=== PATIENT | female | born 1980 | race American Indian/Alaskan Native ===

== ENCOUNTER 2019-01-10 13:46 | Emergency (ER) | payer SELFPAY ==
--- NOTE | 2019-01-10 14:12 | Event Note ---
ED Screening Note Date of service: 01/10/19 Time: 14:06 ED Screening Note: Patient cold symptoms with chest and congestion , cough UP brown pleghm, runnynose. Positive sob. No CP. No fever, chills/ NV. Bronchitis in the past Lungs:- NL WOB, Cough, occasional rhonchi on rt cleared withing ?Bronchtis/URI/LRTI/sinusitis This initial assessment/diagnostic orders/clinical plan/treatment(s) is/are subject to change based on patients health status, clinical progression and re- assessment by fellow clinical providers in the ED. Further treatment and workup at subsequent clinical providers discretion. Patient/guardian urged not to elope from the ED as their condition may be serious if not clinically assessed and managed. Initial orders include: CXR
[2019-01-10 16:06] LABS: HCG Qualitative,Urine Negative (Negative)
--- NOTE | 2019-01-10 16:26 | Emergency Department Report ---
- General Chief Complaint: Upper Respiratory Infection Stated Complaint: COLD SX/CHEST PAIN Time Seen by Provider: 01/10/19 14:05 Source: patient Mode of arrival: Ambulatory Limitations: No Limitations - History of Present Illness Initial Comments: 38-year-old female presents to ED with cough 3 days. Patient reports chest pain, cough productive of brownish sputum. Reports that she is a smoker, hasn't diagnosed with bronchitis in the past. She reports associated mild shortness of breath, runny nose, body aches, and chills. MD Complaint: cough -: days(s) (3) Severity: moderate Consistency: constant Improves With: nothing Worsens With: nothing Associated Symptoms: chills, myalgias, rhinorrhea, nasal congestion, cough, chest pain, shortness of breath. denies: nausea, vomiting - Related Data Previous Rx's Medication Instructions Recorded Last Taken Type Albuterol Sulfate [Proventil Hfa] 2 puff IH Q4HR PRN #1 hfa.aer.ad 01/10/19 Unknown Rx Azithromycin 500 mg PO QDAY #3 tablet 01/10/19 Unknown Rx Benzonatate [Tessalon Perles] 100 mg PO Q8HR PRN #20 capsule 01/10/19 Unknown Rx Naproxen [Naprosyn] 500 mg PO BID #20 tablet 01/10/19 Unknown Rx predniSONE [Deltasone] 50 mg PO QDAY #5 tab 01/10/19 Unknown Rx Allergies Allergy/AdvReac Type Severity Reaction Status Date / Time No Known Allergies Allergy Unverified 04/04/14 17:05 ED Review of Systems ROS: Stated complaint: COLD SX/CHEST PAIN Other details as noted in HPI Comment: All other systems reviewed and negative Constitutional: chills Respiratory: cough, shortness of breath Cardiovascular: chest pain Gastrointestinal: denies: nausea, vomiting Musculoskeletal: myalgia ED Past Medical Hx - Past Medical History Previous Medical History?: No - Surgical History Past Surgical History?: No - Social History Smoking Status: Never Smoker Substance Use Type: Marijuana - Medications Home Medications: Home Medications Medication Instructions Recorded Confirmed Last Taken Type Albuterol Sulfate [Proventil Hfa] 2 puff IH Q4HR PRN #1 hfa.aer.ad 01/10/19 Unknown Rx Azithromycin 500 mg PO QDAY #3 tablet 01/10/19 Unknown Rx Benzonatate [Tessalon Perles] 100 mg PO Q8HR PRN #20 capsule 01/10/19 Unknown Rx Naproxen [Naprosyn] 500 mg PO BID #20 tablet 01/10/19 Unknown Rx predniSONE [Deltasone] 50 mg PO QDAY #5 tab 01/10/19 Unknown Rx ED Physical Exam - General Limitations: No Limitations General appearance: alert, in no apparent distress - Head Head exam: Present: atraumatic, normocephalic - Eye Eye exam: Present: normal appearance, EOMI - ENT ENT exam: Present: mucous membranes moist - Neck Neck exam: Present: normal inspection - Respiratory Respiratory exam: Present: normal lung sounds bilaterally. Absent: respiratory distress - Cardiovascular Cardiovascular Exam: Present: regular rate, normal rhythm - GI/Abdominal GI/Abdominal exam: Absent: distended - Extremities Exam Extremities exam: Present: normal inspection - Neurological Exam Neurological exam: Present: alert, oriented X3 - Psychiatric Psychiatric exam: Present: normal affect, normal mood - Skin Skin exam: Present: warm, dry, intact, normal color ED Course Vital Signs 01/10/19 01/10/19 14:02 17:44 Temperature 98.8 F 98.9 F Pulse Rate 78 79 Respiratory 20 16 Rate Blood Pressure 165/81 Blood Pressure 139/90 [Right] O2 Sat by Pulse 100 99 Oximetry ED Medical Decision Making - Radiology Data Radiology results: report reviewed, image reviewed - Medical Decision Making 38-year-old female presents to ED with URI symptoms. Patient reported cough productive of brownish sputum. Chest x-ray is unremarkable. Patient is a smoker, reports history of bronchitis in the past. This is likely another episode of bronchitis. Patient is in no respiratory distress. Vital signs are normal. Prescriptions given. Outpatient follow-up advised. Return precautions given. - Differential Diagnosis URI, bronchitis, pneumonia Critical care attestation.: If time is entered above; I have spent that time in minutes in the direct care of this critically ill patient, excluding procedure time. ED Disposition Clinical Impression: Acute bronchitis Disposition: DC- TO HOME OR SELFCARE Is pt being admited?: No Condition: Stable Instructions: Acute Bronchitis (ED) Prescriptions: Azithromycin 500 mg PO QDAY #3 tablet predniSONE [Deltasone] 50 mg PO QDAY #5 tab Naproxen [Naprosyn] 500 mg PO BID #20 tablet Albuterol Sulfate [Proventil Hfa] 2 puff IH Q4HR PRN #1 hfa.aer.ad PRN Reason: Wheezing Benzonatate [Tessalon Perles] 100 mg PO Q8HR PRN #20 capsule PRN Reason: Cough Referrals: PRIMARY CARE, [Primary Care Provider] - 3-5 Days [facility] [Provider Group] - 3-5 Days Forms: Work/School Release Form(ED) Time of Disposition: 17:13
--- NOTE | 2019-01-10 17:13 | XRay Report ---
CHEST 2 VIEWS INDICATION / CLINICAL INFORMATION: cough, sob, brown pleghm. COMPARISON: None available. FINDINGS: SUPPORT DEVICES: None. HEART / MEDIASTINUM: No significant abnormality. LUNGS / PLEURA: No significant pulmonary or pleural abnormality. No pneumothorax. ADDITIONAL FINDINGS: No significant additional findings. IMPRESSION: 1. No acute findings. Signer Name: Florencia Bose MD Signed: 01/10/2019 5:09 PM Workstation Name: [id number]
[2019-01-10] MEDS ORDERED: ACETAMINOPHEN 325 MG TAB ONE (17:16)
[2019-01-10] MEDS ORDERED: ACETAMINOPHEN 325 MG TAB PO ONE (17:16)
[2019-01-10 17:49] VITALS: BP 139/90
== END 2019-01-10 17:49 | disposition home or self-care (01) ==
LOC: ED 13:46
DX: J40 Bronchitis, not specified as acute or chronic (principal); F12.10 Cannabis abuse, uncomplicated
CPT/HCPCS: 71046; 81025

== ENCOUNTER 2019-03-10 23:24 | Emergency (ER) | payer MEDICAID ==
[2019-03-10] MEDS ORDERED: ASPIRIN 325 MG TAB PO ONE (23:35)
[2019-03-10 23:58] LABS: Basophils % (Auto) 0.5 % (0.0-1.8); Eosinophils # (Auto) 0.1 K/mm3 (0.0-0.4); Eosinophils % (Auto) 2.5 % (0.0-4.3); Hemoglobin 12.2 gm/dl (10.1-14.3); Lymphocytes # (Auto) 1.6 K/mm3 (1.2-5.4); Lymphocytes % (Auto) 38.6 % (13.4-35.0); Mean Corpuscular HGB Conc 34 % (30-34); Mean Corpuscular Volume 98 fl (79-97); Monocytes # (Auto) 0.4 K/mm3 (0.0-0.8); Monocytes % (Auto) 9.8 % (0.0-7.3); Platelet Count 176 K/mm3 (140-440); Red Blood Count 3.68 M/mm3 (3.65-5.03); Red Cell Distribution Width 13.8 % (13.2-15.2)
--- NOTE | 2019-03-11 00:03 | XRay Report ---
CHEST 1 VIEW INDICATION / CLINICAL INFORMATION: Chest Pain. COMPARISON: 02/09/2019 FINDINGS: SUPPORT DEVICES: None. HEART / MEDIASTINUM: No significant abnormality. LUNGS / PLEURA: No significant pulmonary or pleural abnormality.. No pneumothorax. ADDITIONAL FINDINGS: No significant additional findings. IMPRESSION: 1. No acute findings. Signer Name: Mauri Baker MD Signed: 03/10/2019 11:59 PM Workstation Name: [id number]
[2019-03-11 00:17] LABS: BUN/Creatinine Ratio 16; Blood Urea Nitrogen 11 mg/dL (7-17); Calcium 9.3 mg/dL (8.4-10.2); Hemolysis Index 0
[2019-03-11] MEDS ORDERED: POTASSIUM CHLORIDE ER 20 MEQ TAB PO ONE (04:04)
--- NOTE | 2019-03-11 04:15 | Emergency Department Report ---
ED Palpitations HPI - General Chief Complaint: Arrhythmia/Palpitations Stated Complaint: RAPID HR Time Seen by Provider: 03/11/19 03:13 Source: patient, EMS, old records reviewed (pt here 02/09/2019 for chest pain and left ankle swelling ) Mode of arrival: Ambulatory Limitations: No Limitations - History of Present Illness Initial Comments: 38-year-old female with no known past medical history presents complaining of intermittent palpitation and chest heaviness for last 2 days. Yesterday patient had an episode while exercising. Her heart rate increased, chest pressure, and felt shaky. Symptoms resolved with rest. Today she had another episode while sitting relaxed. She described it as a chest pressure that starts in the epigastrium and radiates to chest, feeling shaky, and palpitations. She denies any skin shortness of breath, nausea, vomiting, or diaphoresis. EMS reports that her heart rate ranged from 106-108 and went up to 140 for about 20 seconds then settled back down to 106. Patient admits to marijuana use but denies other drug ingestion. She uses alcohol occasionally. Patient is not currently on control pills, denies history of PE /dvt, clf tenderness recent travel. Patient has had left medial ankle swelling with mild intermittent pain for the last several weeks but denies calf tenderness or swelling. Patient does endorse some feeling of anxiety during episodes and in the past without a definitive diagnosis by a doctor. D [facility] - Related Data Previous Rx's Medication Instructions Recorded Last Taken Type Albuterol Sulfate [Proventil Hfa] 2 puff IH Q4HR PRN #1 hfa.aer.ad 01/10/19 Unknown Rx Azithromycin 500 mg PO QDAY #3 tablet 01/10/19 Unknown Rx Benzonatate [Tessalon Perles] 100 mg PO Q8HR PRN #20 capsule 01/10/19 Unknown Rx Naproxen [Naprosyn] 500 mg PO BID #20 tablet 01/10/19 Unknown Rx predniSONE [Deltasone] 50 mg PO QDAY #5 tab 01/10/19 Unknown Rx Naproxen [Naprosyn] 500 mg PO BID #20 tablet 02/09/19 Unknown Rx Ondansetron [Zofran Odt] 4 mg PO Q8HR PRN #20 tab.rapdis 02/09/19 Unknown Rx traMADoL [Ultram] 50 mg PO Q6HR PRN #7 tablet 02/09/19 Unknown Rx hydrOXYzine PAMOATE [Vistaril] 50 mg PO Q6HR PRN #20 capsule 03/11/19 Unknown Rx Allergies Allergy/AdvReac Type Severity Reaction Status Date / Time No Known Allergies Allergy Unverified 04/04/14 17:05 ED Review of Systems ROS: Stated complaint: RAPID HR Other details as noted in HPI Comment: All other systems reviewed and negative ED Past Medical Hx - Past Medical History Previous Medical History?: No - Surgical History Past Surgical History?: No - Social History Smoking Status: Current Every Day Smoker Substance Use Type: Marijuana - Medications Home Medications: Home Medications Medication Instructions Recorded Confirmed Last Taken Type Albuterol Sulfate [Proventil Hfa] 2 puff IH Q4HR PRN #1 hfa.aer.ad 01/10/19 Unknown Rx Azithromycin 500 mg PO QDAY #3 tablet 01/10/19 Unknown Rx Benzonatate [Tessalon Perles] 100 mg PO Q8HR PRN #20 capsule 01/10/19 Unknown Rx Naproxen [Naprosyn] 500 mg PO BID #20 tablet 01/10/19 Unknown Rx predniSONE [Deltasone] 50 mg PO QDAY #5 tab 01/10/19 Unknown Rx Naproxen [Naprosyn] 500 mg PO BID #20 tablet 02/09/19 Unknown Rx Ondansetron [Zofran Odt] 4 mg PO Q8HR PRN #20 tab.rapdis 02/09/19 Unknown Rx traMADoL [Ultram] 50 mg PO Q6HR PRN #7 tablet 02/09/19 Unknown Rx hydrOXYzine PAMOATE [Vistaril] 50 mg PO Q6HR PRN #20 capsule 03/11/19 Unknown Rx ED Physical Exam - General Limitations: No Limitations - Other Other exam information: General: No limitations, patient is alert in no acute distress Head exam: Atraumatic, normocephalic Eyes exam: Normal appearance ENT: Moist mucous membrane Neck exam: Normal inspection, full range of motion Respiratory exam: Clear to auscultation bilateral, no wheezes, rales, crackles Cardiovascular: Normal rate and rhythm Abdomen: Soft, nondistended, and nontender, with normal bowel sounds, no rebound, or guarding, Extremity: No deformity. Full range of motion of extremities including left ankle. Mild medial left ankle swelling without tenderness, warmth, or erythema. No calf tenderness or calf edema. Back: Normal Inspection Neurologic: Alert, oriented x3, speech clear, no gross motor or sensory deficit Psychiatric: Normal mood, affect Skin: No rash ED Course Vital Signs 03/10/19 03/11/19 03/11/19 23:31 03:47 04:00 Temperature 99.3 F Pulse Rate 85 88 Respiratory 18 23 Rate Blood Pressure 152/94 146/81 O2 Sat by Pulse 100 87 100 Oximetry 03/11/19 03/11/19 04:16 04:30 Temperature Pulse Rate 76 Respiratory 22 14 Rate Blood Pressure 146/81 146/81 O2 Sat by Pulse 100 Oximetry ED Medical Decision Making - Lab Data Result diagrams: 03/10/19 23:40 03/10/19 23:40 Lab Results 03/10/19 03/10/19 03/11/19 Range/Units 23:40 23:40 02:30 WBC 4.1 L (4.5-11.0) K/mm3 RBC 3.68 (3.65-5.03) M/mm3 Hgb 12.2 (10.1-14.3) gm/dl Hct 36.0 (30.3-42.9) % MCV 98 H (79-97) fl MCH 33 H (28-32) pg MCHC 34 (30-34) % RDW 13.8 (13.2-15.2) % Plt Count 176 (140-440) K/mm3 Lymph % (Auto) 38.6 H (13.4-35.0) % Stone % (Auto) 9.8 H (0.0-7.3) % Eos % (Auto) 2.5 (0.0-4.3) % Baso % (Auto) 0.5 (0.0-1.8) % Lymph # 1.6 (1.2-5.4) K/mm3 Stone # 0.4 (0.0-0.8) K/mm3 Eos # 0.1 (0.0-0.4) K/mm3 Baso # 0.0 (0.0-0.1) K/mm3 Seg Neutrophils % 48.6 (40.0-70.0) % Seg Neutrophils # 2.0 (1.8-7.7) K/mm3 D-Dimer (0-234) ng/mlDDU Sodium 140 (137-145) mmol/L Potassium 3.4 L (3.6-5.0) mmol/L Chloride 102.5 (98-107) mmol/L Carbon Dioxide 22 (22-30) mmol/L Anion Gap 19 mmol/L BUN 11 (7-17) mg/dL Creatinine 0.7 (0.7-1.2) mg/dL Estimated GFR > 60 ml/min BUN/Creatinine Ratio 16 % Glucose 138 H (65-100) mg/dL Calcium 9.3 (8.4-10.2) mg/dL Magnesium (1.7-2.3) mg/dL Troponin T < 0.010 < 0.010 (0.00-0.029) ng/mL TSH (0.270-4.200) mlU/mL Free T4 (0.76-1.46) ng/dL HCG, Qual (Negative) Urine Opiates Screen Urine Methadone Screen Ur Barbiturates Screen Ur Phencyclidine Scrn Ur Amphetamines Screen U Benzodiazepines Scrn Urine Cocaine Screen U Marijuana (THC) Screen Drugs of Abuse Note 03/11/19 03/11/19 03/11/19 Range/Units 03:29 03:29 03:29 WBC (4.5-11.0) K/mm3 RBC (3.65-5.03) M/mm3 Hgb (10.1-14.3) gm/dl Hct (30.3-42.9) % MCV (79-97) fl MCH (28-32) pg MCHC (30-34) % RDW (13.2-15.2) % Plt Count (140-440) K/mm3 Lymph % (Auto) (13.4-35.0) % Stone % (Auto) (0.0-7.3) % Eos % (Auto) (0.0-4.3) % Baso % (Auto) (0.0-1.8) % Lymph # (1.2-5.4) K/mm3 Stone # (0.0-0.8) K/mm3 Eos # (0.0-0.4) K/mm3 Baso # (0.0-0.1) K/mm3 Seg Neutrophils % (40.0-70.0) % Seg Neutrophils # (1.8-7.7) K/mm3 D-Dimer 287.38 H (0-234) ng/mlDDU Sodium (137-145) mmol/L Potassium (3.6-5.0) mmol/L Chloride (98-107) mmol/L Carbon Dioxide (22-30) mmol/L Anion Gap mmol/L BUN (7-17) mg/dL Creatinine (0.7-1.2) mg/dL Estimated GFR ml/min BUN/Creatinine Ratio % Glucose (65-100) mg/dL Calcium (8.4-10.2) mg/dL Magnesium (1.7-2.3) mg/dL Troponin T (0.00-0.029) ng/mL TSH 1.600 (0.270-4.200) mlU/mL Free T4 1.17 (0.76-1.46) ng/dL HCG, Qual Negative (Negative) Urine Opiates Screen Urine Methadone Screen Ur Barbiturates Screen Ur Phencyclidine Scrn Ur Amphetamines Screen U Benzodiazepines Scrn Urine Cocaine Screen U Marijuana (THC) Screen Drugs of Abuse Note 03/11/19 03/11/19 Range/Units 03:29 04:02 WBC (4.5-11.0) K/mm3 RBC (3.65-5.03) M/mm3 Hgb (10.1-14.3) gm/dl Hct (30.3-42.9) % MCV (79-97) fl MCH (28-32) pg MCHC (30-34) % RDW (13.2-15.2) % Plt Count (140-440) K/mm3 Lymph % (Auto) (13.4-35.0) % Stone % (Auto) (0.0-7.3) % Eos % (Auto) (0.0-4.3) % Baso % (Auto) (0.0-1.8) % Lymph # (1.2-5.4) K/mm3 Stone # (0.0-0.8) K/mm3 Eos # (0.0-0.4) K/mm3 Baso # (0.0-0.1) K/mm3 Seg Neutrophils % (40.0-70.0) % Seg Neutrophils # (1.8-7.7) K/mm3 D-Dimer (0-234) ng/mlDDU Sodium (137-145) mmol/L Potassium (3.6-5.0) mmol/L Chloride (98-107) mmol/L Carbon Dioxide (22-30) mmol/L Anion Gap mmol/L BUN (7-17) mg/dL Creatinine (0.7-1.2) mg/dL Estimated GFR ml/min BUN/Creatinine Ratio % Glucose (65-100) mg/dL Calcium (8.4-10.2) mg/dL Magnesium 2.00 (1.7-2.3) mg/dL Troponin T (0.00-0.029) ng/mL TSH (0.270-4.200) mlU/mL Free T4 (0.76-1.46) ng/dL HCG, Qual (Negative) Urine Opiates Screen Presumptive negative Urine Methadone Screen Presumptive negative Ur Barbiturates Screen Presumptive negative Ur Phencyclidine Scrn Presumptive negative Ur Amphetamines Screen Presumptive negative U Benzodiazepines Scrn Presumptive negative Urine Cocaine Screen Presumptive negative U Marijuana (THC) Screen Presumptive positive Drugs of Abuse Note Disclamer - EKG Data -: EKG Interpreted by [facility] EKG shows normal: sinus rhythm, ST-T waves (no STEMI) Rate: tachycardia (101) - EKG Data When compared to previous EKG there are: previous EKG unavailable - Radiology Data Radiology results: report reviewed CTA of the chest with 3D Reconstruction Indication: ,cp, palpitations, elevated ddimer Technique: TECHNIQUE: Axial CT images were obtained through the chest after injection of 100 cc of Omnipaque 350 IV contrast. 3 plane MIP reconstructions were produced. All CT scans at this location are performed using CT dose reduction for ALARA by means of automated exposure control. COMPARISON: None Automatic exposure control was utilized in an attempt to reduce radiation dose. Findings: Pulmonary arteries: The main pulmonary artery and right and left pulmonary artery branches fill satisfactorily with contrast. No pulmonary embolus is seen. Lungs: The lungs are clear. Mediastinum: Heart size is normal. No adenopathy is seen. Aorta: Normal in diameter. No dissection seen within limits of this exam. Impression: No pulmonary embolus is seen - Medical Decision Making mild tachy on arrival resolved trop neg x 2 with low heart score mild ddimer elevation with neg cta mild hypokalemia tx with PO kcl no recurrent palp during ed stay uds + thc ddx anxiety vs arrhythmia outpt f/u with pmd and card for possible holter monitor will be advised. pt requesting meds to help with her anxiety sx. vistaril will be prescribed (pt states she has been prescribed it in the past - Differential Diagnosis pe, anxiey, atypical cp, mi, pneumonthorax, arrhythmia, thyroid disease Critical Care Time: No Critical care attestation.: If time is entered above; I have spent that time in minutes in the direct care o f this critically ill patient, excluding procedure time. ED Disposition Clinical Impression: Palpitations, Hypokalemia, Anxiety Disposition: TO HOME OR SELFCARE Is pt being admited?: No Does the pt Need Aspirin: No Condition: Stable Instructions: Palpitations (ED), Anxiety (ED) Additional Instructions: Follow-up with your doctor or with the doctor/clinic provided. Return if symptoms worsen as indicated by your discharge instructions. Prescriptions: hydrOXYzine PAMOATE [Vistaril] 50 mg PO Q6HR PRN #20 capsule PRN Reason: Anxiety Referrals: RONALD GRAYMARION MD EFRAÍN [Primary Care Provider] - 3-5 Days LYDIA LAM MD [Staff Physician] - 2-3 Days (cardiolgy) Time of Disposition: 05:30
[2019-03-11 04:16] LABS: Free T4 (Free Thyroxine) 1.17 ng/dL (0.76-1.46)
[2019-03-11 04:29] LABS: Amphetamine Screen,Urine PRESUMPTIVE NEGATIVE; Benzodiazepines Screen,Urine PRESUMPTIVE NEGATIVE; Cocaine Screen,Urine PRESUMPTIVE NEGATIVE; Methadone Screen,Urine PRESUMPTIVE NEGATIVE; Opiate Screen,Urine PRESUMPTIVE NEGATIVE
[2019-03-11 04:46] VITALS: BP 146/81
[2019-03-11 04:49] LABS: Cannabinoid Screen,Urine PRESUMPTIVE POSITIVE
--- NOTE | 2019-03-11 05:22 | Cat Scan Report ---
CTA of the chest with 3D Reconstruction Indication: ,cp, palpitations, elevated ddimer Technique: TECHNIQUE: Axial CT images were obtained through the chest after injection of 100 cc of Omnipaque 350 IV contrast. 3 plane MIP reconstructions were produced. All CT scans at this location are performed using CT dose reduction for ALARA by means of automated exposure control. COMPARISON: None Automatic exposure control was utilized in an attempt to reduce radiation dose. Findings: Pulmonary arteries: The main pulmonary artery and right and left pulmonary artery branches fill satis factorily with contrast. No pulmonary embolus is seen. Lungs: The lungs are clear. Mediastinum: Heart size is normal. No adenopathy is seen. Aorta: Normal in diameter. No dissection seen within limits of this exam. Impression: No pulmonary embolus is seen Signer Name: Mauri Baker MD Signed: 03/11/2019 5:17 AM Workstation Name: [id number]
== END 2019-03-11 05:59 | disposition home or self-care (01) ==
LOC: ED 23:24
DX: E87.6 Hypokalemia (principal); R00.2 Palpitations; F41.9 Anxiety disorder, unspecified; F17.200 Nicotine dependence, unspecified, uncomplicated; F12.10 Cannabis abuse, uncomplicated; Z79.899 Other long term (current) drug therapy
CPT/HCPCS: 36415; 71045; 71275; 80048; 80307; 83735; 84439; 84443; 84484; 84703; 85025; 85379; 93005; 93010; 99285; Q9967

== ENCOUNTER 2019-03-14 12:52 | Emergency (ER) | payer MEDICAID ==
[2019-03-14 13:03] VITALS: BP 140/95
[2019-03-14] MEDS ORDERED: diphenhydrAMINE 25 MG CAP PO ONE (13:06)
--- NOTE | 2019-03-14 13:07 | Emergency Department Report ---
Chief Complaint: Weakness Stated Complaint: HEART MONITOR/DEHYDRATED/FLU - HPI History of Present Illness: patient presents with recurrent anxiety like symptoms had extensive work up 4 days ago followed by [place] [facility] has holter monitor no hi no si sober gcs 15 s1 s2 rrr, mild tachycardia heart rate 105-110 on my exam likely anxiety driven given recent extensive negative work up clear lungs steady gait gcs 15 extensive counseling done; self calming techniques outpatient resources complimentary therapy neg trop x 3 cta chest neg there is no facial droop. Tongue is midline. Extraocular movements are intact bilaterally. Walking with a steady gait. Speaking in full sentences. Normal appropriate thought content. 5 out of 5 strength in 4 extremities. Sensation is intact to light touch in 4 extremities. 2+ pulses noted in the bilateral upper and lower extremities. There is no long bony tenderness. The pelvis is stable. The muscular compartments are soft. There is no palpable cord. There is no redness, pus or streaking. Tachycardia resolved on my examination. States she is ready for discharge. Endorses ruddiness to follow up as an outpatient. Not homicidal or suicidal. Vital Signs 03/14/19 13:00 Temperature 98 F Pulse Rate 130 H Respiratory 20 Rate Blood Pressure 140/95 [Right] O2 Sat by Pulse 98 Oximetry Vital Signs 03/14/19 13:00 Temperature 98 F Pulse Rate 130 H Respiratory 20 Rate Blood Pressure 140/95 [Right] O2 Sat by Pulse 98 Oximetry MSE screening note: Focused history and physical exam performed. Due to findings the following was ordered: ekgL: sinus 69 bpm, normal exias, qtc 383 ms, not a stemi, normal intervals, rate 69 bpm ED Disposition for MSE Clinical Impression: Palpitations, Anxiety Disposition: MED SCREENING EXAM-LEFT Is pt being admited?: No Does the pt Need Aspirin: No Condition: Stable
== END 2019-03-14 14:20 | disposition left against medical advice (07) ==
LOC: ED 12:52
DX: F41.9 Anxiety disorder, unspecified (principal)
CPT/HCPCS: 93005; 93010

== ENCOUNTER 2019-03-17 19:34 | Emergency (ER) | payer MEDICAID ==
[2019-03-17 22:16] VITALS: BP 118/74
[2019-03-17] MEDS ORDERED: ASPIRIN 325 MG TAB PO ONE (22:16)
[2019-03-17 23:08] LABS: Basophils % (Auto) 0.6 % (0.0-1.8); Eosinophils # (Auto) 0.1 K/mm3 (0.0-0.4); Eosinophils % (Auto) 1.4 % (0.0-4.3); Hematocrit 41.7 % (30.3-42.9); Hemoglobin 14.2 gm/dl (10.1-14.3); Lymphocytes # (Auto) 1.4 K/mm3 (1.2-5.4); Lymphocytes % (Auto) 30.3 % (13.4-35.0); Mean Corpuscular HGB Conc 34 % (30-34); Mean Corpuscular Volume 97 fl (79-97); Monocytes # (Auto) 0.4 K/mm3 (0.0-0.8); Monocytes % (Auto) 8.6 % (0.0-7.3); Platelet Count 252 K/mm3 (140-440); Red Blood Count 4.28 M/mm3 (3.65-5.03); Red Cell Distribution Width 13.6 % (13.2-15.2)
[2019-03-17 23:32] LABS: BUN/Creatinine Ratio 13; Blood Urea Nitrogen 9 mg/dL (7-17); Calcium 10.5 mg/dL (8.4-10.2); Hemolysis Index 4
--- NOTE | 2019-03-18 00:15 | XRay Report ---
CHEST 1 VIEW INDICATION: Chest Pain. COMPARISON: 03/10/2019 FINDINGS: Support devices: None. Heart: Within normal limits. Lungs/Pleura: No acute air space or interstitial disease. Additional findings: None. IMPRESSION: 1. No acute findings. Signer Name: Andrei Rothman MD Signed: 03/18/2019 12:11 AM Workstation Name: [email or web address]
[2019-03-18] MEDS ORDERED: ALUM-MAG HYDROXIDE-SIMETHICONE 200-200-20MG/5ML ORAL LIQD 30 ML PO ONE (00:28)
[2019-03-18] MEDS ORDERED: ACETAMINOPHEN 500 MG TAB PO ONE (00:28)
[2019-03-18] MEDS ORDERED: ONDANSETRON 4 MG ODT TAB PO ONE (00:28)
--- NOTE | 2019-03-18 00:36 | Emergency Department Report ---
ED Chest Pain HPI - General Chief Complaint: Chest Pain Stated Complaint: CHEST PAIN/ACID REFLUX/DIZZINESS Time Seen by Provider: 03/18/19 00:21 Source: patient Mode of arrival: Ambulatory Limitations: No Limitations - History of Present Illness Initial Comments: Loraine is a 38 yo female with hx of palpitations, GERD, anxiety who presents with "acid reflux" for the past 2 days. She has throat burning, heart burn, epigastirc pressure with poor appetite. Symptoms worse with eating. Discomfort is worse with laying on either side. Recently prescribed metoprolol by [facility] guest services officer this week. has been prescribed Xanax. Followed by Dr. Salgado PCP [facility] MD Complaint: chest pain -: Gradual, days(s) (2) Onset: during rest Pain Location: substernal, left chest Severity scale (0 -10): 10 Quality: other (burning with throat irritation) Consistency: constant Worsens With: eating, supine Context: recent illness (recently evaluated with Holter monitor) re: nausea - Related Data Previous Rx's Medication Instructions Recorded Last Taken Type Albuterol Sulfate [Proventil Hfa] 2 puff IH Q4HR PRN #1 hfa.aer.ad 01/10/19 Unkn own Rx Azithromycin 500 mg PO QDAY #3 tablet 01/10/19 Unknown Rx Benzonatate [Tessalon Perles] 100 mg PO Q8HR PRN #20 capsule 01/10/19 Unknown Rx Naproxen [Naprosyn] 500 mg PO BID #20 tablet 01/10/19 Unknown Rx predniSONE [Deltasone] 50 mg PO QDAY #5 tab 01/10/19 Unknown Rx Naproxen [Naprosyn] 500 mg PO BID #20 tablet 02/09/19 Unknown Rx Ondansetron [Zofran Odt] 4 mg PO Q8HR PRN #20 tab.rapdis 02/09/19 Unknown Rx traMADoL [Ultram] 50 mg PO Q6HR PRN #7 tablet 02/09/19 Unknown Rx hydrOXYzine PAMOATE [Vistaril] 50 mg PO Q6HR PRN #20 capsule 03/11/19 Unknown Rx Famotidine [Pepcid] 20 mg PO BID 30 Days #60 tablet 03/18/19 Unknown Rx Promethazine [Phenergan] 25 mg PO Q6HR PRN #10 tab 03/18/19 Unknown Rx Allergies Allergy/AdvReac Type Severity Reaction Status Date / Time No Known Allergies Allergy Verified 03/14/19 12:53 Heart Score - HEART Score History: Slightly suspicious EKG: Normal Age: < 45 Risk factors: No known risk factors Troponin: < normal limit HEART Score: 0 ED Review of Systems ROS: Stated complaint: CHEST PAIN/ACID REFLUX/DIZZINESS Other details as noted in HPI Comment: All other systems reviewed and negative Respiratory: denies: cough, shortness of breath Cardiovascular: chest pain Gastrointestinal: nausea ED Past Medical Hx - Past Medical History Previous Medical History?: Yes Hx Psychiatric Treatment: Yes (Anxiety) Additional medical history: RACING HEART - Surgical History Past Surgical History?: No - Social History Smoking Status: Current Every Day Smoker Substance Use Type: None - Medications Home Medications: Home Medications Medication Instructions Recorded Confirmed Last Taken Type Albuterol Sulfate [Proventil Hfa] 2 puff IH Q4HR PRN #1 hfa.aer.ad 01/10/19 Unknown Rx Azithromycin 500 mg PO QDAY #3 tablet 01/10/19 Unknown Rx Benzonatate [Tessalon Perles] 100 mg PO Q8HR PRN #20 capsule 01/10/19 Unknown Rx Naproxen [Naprosyn] 500 mg PO BID #20 tablet 01/10/19 Unknown Rx predniSONE [Deltasone] 50 mg PO QDAY #5 tab 01/10/19 Unknown Rx Naproxen [Naprosyn] 500 mg PO BID #20 tablet 02/09/19 Unknown Rx Ondansetron [Zofran Odt] 4 mg PO Q8HR PRN #20 tab.rapdis 02/09/19 Unknown Rx traMADoL [Ultram] 50 mg PO Q6HR PRN #7 tablet 02/09/19 Unknown Rx hydrOXYzine PAMOATE [Vistaril] 50 mg PO Q6HR PRN #20 capsule 03/11/19 Unknown Rx Famotidine [Pepcid] 20 mg PO BID 30 Days #60 tablet 03/18/19 Unknown Rx Promethazine [Phenergan] 25 mg PO Q6HR PRN #10 tab 03/18/19 Unknown Rx ED Physical Exam - General Limitations: No Limitations General appearance: alert, in no apparent distress - Head Head exam: Present: atraumatic, normocephalic - Eye Eye exam: Present: normal appearance - ENT ENT exam: Present: mucous membranes moist - Neck Neck exam: Present: normal inspection, full ROM - Respiratory Respiratory exam: Present: normal lung sounds bilaterally. Absent: respiratory distress, wheezes, rales, rhonchi - Cardiovascular Cardiovascular Exam: Present: regular rate, normal rhythm, normal heart sounds. Absent: systolic murmur, diastolic murmur, rubs, gallop - GI/Abdominal GI/Abdominal exam: Present: soft, normal bowel sounds. Absent: distended, tenderness, guarding, rebound - Extremities Exam Extremities exam: Present: normal inspection - Neurological Exam Neurological exam: Present: alert, oriented X3 - Psychiatric Psychiatric exam: Present: normal affect, normal mood - Skin Skin exam: Present: warm, dry, intact, normal color. Absent: rash ED Course Vital Signs 03/17/19 22:14 Temperature 98.6 F Pulse Rate 60 Respiratory 20 Rate Blood Pressure 118/74 [Left] O2 Sat by Pulse 99 Oximetry ED Medical Decision Making - Lab Data Result diagrams: 03/17/19 22:40 03/17/19 22:40 Laboratory Results - last 24 hr 03/17/19 03/17/19 03/17/19 22:40 22:40 22:40 WBC 4.8 RBC 4.28 Hgb 14.2 Hct 41.7 MCV 97 MCH 33 H MCHC 34 RDW 13.6 Plt Count 252 Lymph % (Auto) 30.3 [place] % (Auto) 8.6 H Eos % (Auto) 1.4 Baso % (Auto) 0.6 Lymph # 1.4 [place] # 0.4 Eos # 0.1 Baso # 0.0 Seg Neutrophils % 59.1 Seg Neutrophils # 2.8 Sodium 139 Potassium 4.1 Chloride 99.7 Carbon Dioxide 24 Anion Gap 19 BUN 9 Creatinine 0.7 Estimated GFR > 60 BUN/Creatinine Ratio 13 Glucose 98 Calcium 10.5 H Troponin T < 0.010 HCG, Qual Negative - EKG Data EKG shows normal: sinus rhythm, axis, intervals, QRS complexes, ST-T waves Rate: normal - EKG Data Interpretation: normal EKG - Radiology Data Radiology results: report reviewed Chest radiograph: No acute findings - Medical Decision Making Ms. Puente presents with symptoms corresponding to GERD. I suspect that Medications likely have aggravated known diagnosis. I do not suspect pulmonary embolism. PERC negative. Heart rate 60. No indication of pericarditis ACS pneumonia on evaluation today. Prescribed famotidine and promethazine referred to her PCP Dr. Salgado Critical care attestation.: If time is entered above; I have spent that time in minutes in the direct care of this critically ill patient, excluding procedure time. ED Disposition Clinical Impression: GERD (gastroesophageal reflux disease) Disposition: TO HOME OR SELFCARE Is pt being admited?: No Does the pt Need Aspirin: No Condition: Stable Instructions: Gastroesophageal Reflux Disease (ED) Prescriptions: Famotidine [Pepcid] 20 mg PO BID 30 Days #60 tablet Promethazine [Phenergan] 25 mg PO Q6HR PRN #10 tab PRN Reason: Nausea Referrals: TAO SALGADO MD [Primary Care Provider] - 3-5 Days Forms: Work/School Release Form(ED)
== END 2019-03-18 02:08 | disposition home or self-care (01) ==
LOC: ED 19:34
DX: K21.9 Gastro-esophageal reflux disease without esophagitis (principal); F41.9 Anxiety disorder, unspecified; F17.200 Nicotine dependence, unspecified, uncomplicated; Z79.899 Other long term (current) drug therapy
CPT/HCPCS: 36415; 71045; 80048; 84484; 84703; 85025; 93005; 93010; Q0162

== ENCOUNTER 2019-03-20 16:25 | Emergency (ER) | payer MEDICAID | END 2019-03-20 18:56 | disposition left against medical advice (07) | LOC: ED 16:25 | DX: R09.81 Nasal congestion (principal); R51 Headache; Z53.21 Procedure and treatment not carried out due to patient leaving prior to being seen by health care provider ==

== ENCOUNTER 2019-04-29 10:33 | Emergency (ER) | payer MEDICAID ==
[2019-04-29 10:58] VITALS: BP 112/69
--- NOTE | 2019-04-29 14:34 | Emergency Department Report ---
ED ENT HPI - General Chief complaint: Dental/Oral Stated complaint: HARD TO BREATH Time Seen by Provider: 04/29/19 14:29 Source: patient Mode of arrival: Ambulatory Limitations: No Limitations - History of Present Illness Initial comments: 39-year-old -[place] female presents to the emergency room for an abscess to the left side of her gum for the last couple nights. Patient states that ibuprofen 400 mg is not helping with her pain. Patient also reports a scratchy throat. Patient denies any fever no nausea no vomiting no cough. MD complaint: tooth pain Onset/Timin -: days(s) Location: tooth # (37) Severity scale (0 -10): 10 Quality: sharp Consistency: constant Improves with: none Worsens with: none Associated Symptoms: gum swelling, toothache - Related Data Previous Rx's Medication Instructions Recorded Last Taken Type Albuterol Sulfate [Proventil Hfa] 2 puff IH Q4HR PRN #1 hfa.aer.ad 01/10/19 Unknown Rx Azithromycin 500 mg PO QDAY #3 tablet 01/10/19 Unknown Rx Benzonatate [Tessalon Perles] 100 mg PO Q8HR PRN #20 capsule 01/10/19 Unknown Rx Naproxen [Naprosyn] 500 mg PO BID #20 tablet 01/10/19 Unknown Rx predniSONE [Deltasone] 50 mg PO QDAY #5 tab 01/10/19 Unknown Rx Naproxen [Naprosyn] 500 mg PO BID #20 tablet 02/09/19 Unknown Rx Ondansetron [Zofran Odt] 4 mg PO Q8HR PRN #20 tab.rapdis 02/09/19 Unknown Rx traMADoL [Ultram] 50 mg PO Q6HR PRN #7 tablet 02/09/19 Unknown Rx hydrOXYzine PAMOATE [Vistaril] 50 mg PO Q6HR PRN #20 capsule 03/11/19 Unknown Rx Famotidine [Pepcid] 20 mg PO BID 30 Days #60 tablet 03/18/19 Unknown Rx Promethazine [Phenergan] 25 mg PO Q6HR PRN #10 tab 03/18/19 Unknown Rx Clindamycin [Clindamycin CAP] 600 mg PO BID 10 Days #20 capsule 04/29/19 Unknown Rx Allergies Allergy/AdvReac Type Severity Reaction Status Date / Time paroxetine [From Paxil] Allergy Unknown Verified 04/29/19 10:58 ED Dental HPI - General Chief complaint: Dental/Oral Stated complaint: HARD TO BREATH Time Seen by Provider: 04/29/19 14:29 Source: patient Mode of arrival: Ambulatory Limitations: No Limitations - Related Data Previous Rx's Medication Instructions Recorded Last Taken Type Albuterol Sulfate [Proventil Hfa] 2 puff IH Q4HR PRN #1 hfa.aer.ad 01/10/19 Unknown Rx Azithromycin 500 mg PO QDAY #3 tablet 01/10/19 Unknown Rx Benzonatate [Tessalon Perles] 100 mg PO Q8HR PRN #20 capsule 01/10/19 Unknown Rx Naproxen [Naprosyn] 500 mg PO BID #20 tablet 01/10/19 Unknown Rx predniSONE [Deltasone] 50 mg PO QDAY #5 tab 01/10/19 Unknown Rx Naproxen [Naprosyn] 500 mg PO BID #20 tablet 02/09/19 Unknown Rx Ondansetron [Zofran Odt] 4 mg PO Q8HR PRN #20 tab.rapdis 02/09/19 Unknown Rx traMADoL [Ultram] 50 mg PO Q6HR PRN #7 tablet 02/09/19 Unknown Rx hydrOXYzine PAMOATE [Vistaril] 50 mg PO Q6HR PRN #20 capsule 03/11/19 Unknown Rx Famotidine [Pepcid] 20 mg PO BID 30 Days #60 tablet 03/18/19 Unknown Rx Promethazine [Phenergan] 25 mg PO Q6HR PRN #10 tab 03/18/19 Unknown Rx Clindamycin [Clindamycin CAP] 600 mg PO BID 10 Days #20 capsule 04/29/19 Unknown Rx Allergies Allergy/AdvReac Type Severity Reaction Status Date / Time paroxetine [From Paxil] Allergy Unknown Verified 04/29/19 10:58 ED Review of Systems ROS: Stated complaint: HARD TO BREATH Other details as noted in HPI ED Past Medical Hx - Past Medical History Previous Medical History?: Yes Hx Psychiatric Treatment: Yes (Anxiety) Additional medical history: RACING HEART - Surgical History Past Surgical History?: No - Social History Smoking Status: Former Smoker Substance Use Type: None - Medications Home Medications: Home Medications Medication Instructions Recorded Confirmed Last Taken Type Albuterol Sulfate [Proventil Hfa] 2 puff IH Q4HR PRN #1 hfa.aer.ad 01/10/19 Unknown Rx Azithromycin 500 mg PO QDAY #3 tablet 01/10/19 Unknown Rx Benzonatate [Tessalon Perles] 100 mg PO Q8HR PRN #20 capsule 01/10/19 Unknown Rx Naproxen [Naprosyn] 500 mg PO BID #20 tablet 01/10/19 Unknown Rx predniSONE [Deltasone] 50 mg PO QDAY #5 tab 01/10/19 Unknown Rx Naproxen [Naprosyn] 500 mg PO BID #20 tablet 02/09/19 Unknown Rx Ondansetron [Zofran Odt] 4 mg PO Q8HR PRN #20 tab.rapdis 02/09/19 Unknown Rx traMADoL [Ultram] 50 mg PO Q6HR PRN #7 tablet 02/09/19 Unknown Rx hydrOXYzine PAMOATE [Vistaril] 50 mg PO Q6HR PRN #20 capsule 03/11/19 Unknown Rx Famotidine [Pepcid] 20 mg PO BID 30 Days #60 tablet 03/18/19 Unknown Rx Promethazine [Phenergan] 25 mg PO Q6HR PRN #10 tab 03/18/19 Unknown Rx Clindamycin [Clindamycin CAP] 600 mg PO BID 10 Days #20 capsule 04/29/19 Unknown Rx ED Physical Exam - General Limitations: No Limitations General appearance: alert, in no apparent distress - Head Head exam: Present: atraumatic, normocephalic - Eye Eye exam: Present: normal appearance - Expanded ENT Exam Expanded Teeth exam: Present: dental caries, gingival enlargement Throat exam: Positive: normal inspection - Respiratory Respiratory exam: Present: normal lung sounds bilaterally. Absent: respiratory distress - Cardiovascular Cardiovascular Exam: Present: regular rate, normal rhythm. Absent: systolic murmur, diastolic murmur, rubs, gallop - Neurological Exam Neurological exam: Present: alert, oriented X3, normal gait - Psychiatric Psychiatric exam: Present: normal affect, normal mood - Skin Skin exam: Present: warm, dry, intact, normal color. Absent: rash ED Course Vital Signs 04/29/19 10:55 Temperature 98.1 F Pulse Rate 78 Respiratory 18 Rate Blood Pressure 112/69 O2 Sat by Pulse 100 Oximetry ED Medical Decision Making - Medical Decision Making 39-year-old -[place] female presents to the emergency room for an abscess to the left side of her gum for the last couple nights. Patient states that ibuprofen 400 mg is not helping with her pain. Patient also reports a scratchy throat. Patient denies any fever no nausea no vomiting no cough. Patient be placed on clindamycin 300 mg p.o. twice daily for 10 days. Patient can take ibuprofen 600 mg for pain management. Patient needs to follow-up with a dentist as she has multiple dental work that needs to be completed Critical care attestation.: If time is entered above; I have spent that time in minutes in the direct care of this critically ill patient, excluding procedure time. ED Disposition Clinical Impression: Dental abscess Disposition: TO HOME OR SELFCARE Is pt being admited?: No Does the pt Need Aspirin: No Condition: Stable Instructions: Dental Abscess (ED) Additional Instructions: Complete antibiotics as prescribed. Take [id number] ibuprofen 600 mg which is 3 [id number] ibuprofens. Follow-up with a dentist. Continue followed up with your primary care provider Prescriptions: Clindamycin [Clindamycin CAP] 600 mg PO BID 10 Days #20 capsule Referrals: PRIMARY CARE, [Primary Care Provider] - 3-5 Days [facility] [Outside] - 3-5 Days [facility] [Outside] - 3-5 Days [facility] [Outside] - 3-5 Days
== END 2019-04-29 14:44 | disposition home or self-care (01) ==
LOC: ED 10:33
DX: K04.7 Periapical abscess without sinus (principal); F41.9 Anxiety disorder, unspecified; Z79.899 Other long term (current) drug therapy; Z87.891 Personal history of nicotine dependence; Z88.8 Allergy status to other drugs, medicaments and biological substances
CPT/HCPCS: 99282

== ENCOUNTER 2019-10-18 20:16 | Emergency (ER) | payer MEDICAID ==
[2019-10-18 20:38] VITALS: BP 139/85
[2019-10-18] MEDS: AMOXICILLIN/K CLAV 875/125MG TAB PO ONE ×2 (23:15→23:44)
[2019-10-18] MEDS: IBUPROFEN 600 MG TAB PO ONE ×2 (23:15→23:45)
[2019-10-18] MEDS: predniSONE 20 MG TAB PO ONE ×2 (23:15→23:45)
--- NOTE | 2019-10-18 23:20 | Emergency Department Report ---
- General Chief Complaint: Back Pain/Injury Stated Complaint: POSS SINUS INFECTION Source: patient Mode of arrival: Ambulatory Limitations: No Limitations - History of Present Illness Initial Comments: Patient is a 39-year-old -[place] female with past medical history presents to the ED with complaint of acute onset persistent nasal and sinus congestion, sore throat, sinus headache, and lack of appetite for the last 2 days. Patient denies dizziness, syncope, chest pain, shortness of breath, cough, abdominal pain, diarrhea, dysuria, urinary frequency and urgency, change in vision or fever and chills. Patient states that she has not taken any medications [id number] prior to arrival in the ED. MD Complaint: cough, sore throat, rhinorrhea, nasal congestion, sinus pain -: days(s) (2) Severity: moderate Severity scale (0 -10): 5 Quality: sharp, aching Consistency: constant Improves With: nothing Worsens With: nothing Associated Symptoms: denies other symptoms, chills, myalgias, headache, rhinorrhea, nasal congestion, sore throat. denies: fever, diaphoresis, stiff neck, cough, chest pain, shortness of breath, abdominal pain, nausea, vomiting, rash, right sweats, epistaxis, hoarseness, ear pain Treatments Prior to Arrival: none - Related Data Previous Rx's Medication Instructions Recorded Last Taken Type Albuterol Sulfate [Proventil Hfa] 2 puff IH Q4HR PRN #1 hfa.aer.ad 01/10/19 Unknown Rx Azithromycin 500 mg PO QDAY #3 tablet 01/10/19 Unknown Rx Benzonatate [Tessalon Perles] 100 mg PO Q8HR PRN #20 capsule 01/10/19 Unknown Rx Naproxen [Naprosyn] 500 mg PO BID #20 tablet 01/10/19 Unknown Rx predniSONE [Deltasone] 50 mg PO QDAY #5 tab 01/10/19 Unknown Rx Naproxen [Naprosyn] 500 mg PO BID #20 tablet 02/09/19 Unknown Rx Ondansetron [Zofran Odt] 4 mg PO Q8HR PRN #20 tab.rapdis 02/09/19 Unknown Rx traMADoL [Ultram] 50 mg PO Q6HR PRN #7 tablet 02/09/19 Unknown Rx hydrOXYzine PAMOATE [Vistaril] 50 mg PO Q6HR PRN #20 capsule 03/11/19 Unknown Rx Famotidine [Pepcid] 20 mg PO BID 30 Days #60 tablet 03/18/19 Unknown Rx Promethazine [Phenergan] 25 mg PO Q6HR PRN #10 tab 03/18/19 Unknown Rx Clindamycin [Clindamycin CAP] 600 mg PO BID 10 Days #20 capsule 04/29/19 Unknown Rx Amoxicillin [Trimox CAP] 500 mg PO Q8H #30 capsule 10/18/19 Unknown Rx Cetirizine HCl [Zyrtec 10mg tab] 10 mg PO DAILY #30 tablet 10/18/19 Unknown Rx Ibuprofen [Motrin] 600 mg PO Q8H PRN #30 tablet 10/18/19 Unknown Rx methylPREDNISolone [Medrol 4MG 4 mg PO DAILY #21 tab.ds.pk 10/18/19 Unknown Rx DOSEPAK (21 tabs)] Allergies Allergy/AdvReac Type Severity Reaction Status Date / Time paroxetine [From Paxil] Allergy Unknown Verified 04/29/19 10:58 ED Review of Systems ROS: Stated complaint: POSS SINUS INFECTION Other details as noted in HPI Constitutional: denies: chills, fever Eyes: denies: eye pain, eye discharge, vision change ENT: throat pain, congestion, other (Frontal sinus pressure). denies: ear pain Respiratory: denies: cough, shortness of breath, wheezing Cardiovascular: denies: chest pain, palpitations Endocrine: no symptoms reported Gastrointestinal: denies: abdominal pain, nausea, vomiting, diarrhea Genitourinary: denies: urgency, dysuria, discharge Musculoskeletal: denies: back pain, joint swelling, arthralgia Skin: denies: rash, lesions Neurological: denies: headache, weakness, paresthesias Psychiatric: denies: anxiety, depression Hematological/Lymphatic: denies: easy bleeding, easy bruising ED Past Medical Hx - Past Medical History Previous Medical History?: Yes Hx Psychiatric Treatment: Yes (Anxiety) Additional medical history: RACING HEART - Surgical History Past Surgical History?: No - Social History Smoking Status: Former Smoker Substance Use Type: None - Medications Home Medications: Home Medications Medication Instructions Recorded Confirmed Last Taken Type Albuterol Sulfate [Proventil Hfa] 2 puff IH Q4HR PRN #1 hfa.aer.ad 01/10/19 Unknown Rx Azithromycin 500 mg PO QDAY #3 tablet 01/10/19 Unknown Rx Benzonatate [Tessalon Perles] 100 mg PO Q8HR PRN #20 capsule 01/10/19 Unknown Rx Naproxen [Naprosyn] 500 mg PO BID #20 tablet 01/10/19 Unknown Rx predniSONE [Deltasone] 50 mg PO QDAY #5 tab 01/10/19 Unknown Rx Naproxen [Naprosyn] 500 mg PO BID #20 tablet 02/09/19 Unknown Rx Ondansetron [Zofran Odt] 4 mg PO Q8HR PRN #20 tab.rapdis 02/09/19 Unknown Rx traMADoL [Ultram] 50 mg PO Q6HR PRN #7 tablet 02/09/19 Unknown Rx hydrOXYzine PAMOATE [Vistaril] 50 mg PO Q6HR PRN #20 capsule 03/11/19 Unknown Rx Famotidine [Pepcid] 20 mg PO BID 30 Days #60 tablet 03/18/19 Unknown Rx Promethazine [Phenergan] 25 mg PO Q6HR PRN #10 tab 03/18/19 Unknown Rx Clindamycin [Clindamycin CAP] 600 mg PO BID 10 Days #20 capsule 04/29/19 Unknown Rx Amoxicillin [Trimox CAP] 500 mg PO Q8H #30 capsule 10/18/19 Unknown Rx Cetirizine HCl [Zyrtec 10mg tab] 10 mg PO DAILY #30 tablet 10/18/19 Unknown Rx Ibuprofen [Motrin] 600 mg PO Q8H PRN #30 tablet 10/18/19 Unknown Rx methylPREDNISolone [Medrol 4MG 4 mg PO DAILY #21 tab.ds.pk 10/18/19 Unknown Rx DOSEPAK (21 tabs)] ED Physical Exam - General Limitations: No Limitations General appearance: alert, in no apparent distress - Head Head exam: Present: atraumatic, normocephalic, normal inspection - Eye Eye exam: Present: normal appearance, PERRL, EOMI Pupils: Present: normal accommodation - ENT ENT exam: Present: mucous membranes moist, TM's normal bilaterally, normal external ear exam, other (Grossly congested nasal passages; palpable frontal sinus tenderness and mildly erythematous oropharynx) - Neck Neck exam: Present: normal inspection, full ROM. Absent: tenderness, lymphadenopathy - Respiratory Respiratory exam: Present: normal lung sounds bilaterally. Absent: respiratory distress, wheezes, rales, rhonchi, chest wall tenderness, accessory muscle use, prolonged expiratory - Cardiovascular Cardiovascular Exam: Present: regular rate, normal rhythm, normal heart sounds. Absent: systolic murmur, diastolic murmur, rubs, gallop - GI/Abdominal GI/Abdominal exam: Present: soft, normal bowel sounds. Absent: tenderness, guarding, rebound, rigid, hyperactive bowel sounds, hypoactive bowel sounds, organomegaly - Extremities Exam Extremities exam: Present: normal inspection, full ROM, normal capillary refill - Back Exam Back exam: Present: normal inspection, full ROM. Absent: tenderness, CVA tenderness (R), CVA tenderness (L), muscle spasm, paraspinal tenderness, vertebral tenderness - Neurological Exam Neurological exam: Present: alert, oriented X3, CN II-XII intact, normal gait, reflexes normal - Psychiatric Psychiatric exam: Present: normal affect, normal mood - Skin Skin exam: Present: warm, dry, intact, normal color. Absent: rash ED Course Vital Signs 10/18/19 20:36 Temperature 98.3 F Pulse Rate 84 Respiratory 18 Rate Blood Pressure 139/85 O2 Sat by Pulse 100 Oximetry ED Medical Decision Making - Medical Decision Making This is a 39-year-old -[place] female with past medical history presents to the ED with complaint of acute onset persistent nasal and sinus congestion, sore throat, sinus headache, and lack of appetite for the last 2 days. In the ED, patient is alert and oriented x3 and is not in distress. Patient was treated in the ED for pain and treated with steroids. Patient was discharged home on medications and advised to follow-up with her primary care physician in 5 to 7 days for reevaluation return to the ED immediately if symptoms get worse. - Differential Diagnosis Sinusitis, Pharyngitis; URI; Rhinitis; sinus headache Critical care attestation.: If time is entered above; I have spent that time in minutes in the direct care of this critically ill patient, excluding procedure time. ED Disposition Clinical Impression: Acute upper respiratory infection Acute maxillary sinusitis, unspecified Qualifiers: Recurrence: non-recurrent Qualified Code(s): J01.00 - Acute maxillary sinusitis, unspecified Acute pharyngitis Qualifiers: Pharyngitis/tonsillitis etiology: unspecified etiology Qualified Code(s): J02.9 - Acute pharyngitis, unspecified Disposition: DC-01 TO HOME OR SELFCARE Is pt being admited?: No Does the pt Need Aspirin: No Condition: Stable Instructions: Pharyngitis (ED), Upper Respiratory Infection (ED), Acute Bacterial Rhinosinusitis (ED) Additional Instructions: Take medication with food, drink plenty of fluids and follow-up with your primary care physician in 7 to 10 days for reevaluation. Return to the ED immediately if symptoms get worse. Prescriptions: methylPREDNISolone [Medrol 4MG DOSEPAK (21 tabs)] 4 mg PO DAILY #21 tab.ds.pk Ibuprofen [Motrin] 600 mg PO Q8H PRN #30 tablet PRN Reason: Pain Amoxicillin [Trimox CAP] 500 mg PO Q8H #30 capsule Cetirizine HCl [Zyrtec 10mg tab] 10 mg PO DAILY #30 tablet Referrals: SABINE VIRGEN MD [Primary Care Provider] - 3-5 Days Time of Disposition: 23:18 Print Language: [id number]
== END 2019-10-18 23:50 | disposition home or self-care (01) ==
LOC: ED 20:16
DX: J02.9 Acute pharyngitis, unspecified (principal); J01.00 Acute maxillary sinusitis, unspecified; J06.9 Acute upper respiratory infection, unspecified; F41.9 Anxiety disorder, unspecified; Z87.891 Personal history of nicotine dependence; Z79.1 Long term (current) use of non-steroidal anti-inflammatories (NSAID); Z79.2 Long term (current) use of antibiotics; Z79.899 Other long term (current) drug therapy; Z88.8 Allergy status to other drugs, medicaments and biological substances
CPT/HCPCS: 99282; J7512

== ENCOUNTER 2021-03-26 22:08 | Emergency (ER) | payer MEDICAID | END 2021-03-27 03:00 | disposition left against medical advice (07) | LOC: ED 22:08 | DX: R10.9 Unspecified abdominal pain (principal); Z53.21 Procedure and treatment not carried out due to patient leaving prior to being seen by health care provider ==